=== PATIENT | male | born 1990 ===

== ENCOUNTER 2025-07-26 14:14 | Emergency (ER) | payer SELFPAY ==
[2025-07-26 14:44] LABS: Cocaine Metabolite Screen Negative (Negative); THC/Cannabinoid Screen Negative (Negative); Tricyclic Screen Negative (Negative)
== END 2025-07-26 16:28 | disposition left against medical advice (07) ==
LOC: ERS 14:14
DX: Z53.21 Procedure and treatment not carried out due to patient leaving prior to being seen by health care provider (principal)
CPT/HCPCS: 80306; 80307